=== PATIENT | female | born 1950 | race Caucasian/White ===

== ENCOUNTER → 2020-03-17 09:29 | Outpatient (CLI) | payer MEDICARE, OTHER, SELFPAY | PROVIDERS: PCP Internal Medicine; Referring Provider Internal Medicine; Visit Provider Internal Medicine | DX: M85.852 Other specified disorders of bone density and structure, left thigh (principal); Z78.0 Asymptomatic menopausal state; Z85.3 Personal history of malignant neoplasm of breast; Z82.62 Family history of osteoporosis | CPT/HCPCS: 77080 ==

== ENCOUNTER → 2020-07-13 10:13 | Outpatient (CLI) | payer MEDICARE, OTHER, SELFPAY ==
[2020-07-13] MEDS: COVID-19 VACC #1, MRNA(MOD) 100 MCG/0.5 ML VIAL IM (10:25)
== END ==
PROVIDERS: PCP Internal Medicine; Visit Provider Internal Medicine
DX: Z23 Encounter for immunization (principal)
CPT/HCPCS: 0011A; 91301

== ENCOUNTER → 2020-08-10 10:16 | Outpatient (CLI) | payer MEDICARE, OTHER, SELFPAY ==
[2020-08-10] MEDS: COVID-19 VACC #2, MRNA(MOD) 100 MCG/0.5 ML VIAL IM (10:29)
== END ==
PROVIDERS: PCP Internal Medicine; Visit Provider Internal Medicine
DX: Z23 Encounter for immunization (principal)
CPT/HCPCS: 0012A; 91301

== ENCOUNTER → 2020-08-31 11:07 | Outpatient (CLI) | payer MEDICARE, OTHER, SELFPAY ==
--- NOTE | 2020-08-31 | DI.MRI.S_ITS ---
PROCEDURE: MR ANGIO HEAD WO CON INDICATIONS: Family history of stroke TECHNIQUE: Noncontrast axial 3-D [id number] MR angiogram, with 3-dimensional maximum intensity projection (MIP) reformats of the internal carotid arteries and posterior circulation then performed. COMPARISON: None. FINDINGS: Image quality: Excellent. Anterior circulation: Intracranial internal carotid arteries demonstrate normal size and intraluminal flow signal. The flow within the paired anterior cerebral arteries is normal and symmetric. The flow within the middle cerebral arteries is normal and symmetric. The anterior communicating artery is seen. No stenoses, occlusions, or aneurysms. Posterior circulation: Visualized portions of the vertebral arteries demonstrate normal caliber, and join to form a normal appearing basilar artery. The flow within the posterior cerebral arteries is normal and symmetric. No stenoses, occlusions, or aneurysms. IMPRESSION: 1. Normal MR angiogram of the head. 2. No large vessel occlusion, vascular stenosis, vascular dissection or aneurysm. Dictated by: Sofia Edward MD, PhD on 08/31/2020 at 16:28 Approved by: Sofia Edward MD, PhD on 08/31/2020 at 16:31
== END ==
PROVIDERS: PCP Internal Medicine; Referring Provider Internal Medicine; Visit Provider Internal Medicine
DX: Z13.6 Encounter for screening for cardiovascular disorders (principal); Z82.3 Family history of stroke
CPT/HCPCS: 70544

== ENCOUNTER → 2022-04-06 10:16 | Outpatient (CLI) | payer MEDICARE, OTHER, SELFPAY | PROVIDERS: PCP Internal Medicine; Referring Provider Internal Medicine; Visit Provider Internal Medicine | DX: M85.852 Other specified disorders of bone density and structure, left thigh (principal); Z79.890 Hormone replacement therapy; Z79.83 Long term (current) use of bisphosphonates | CPT/HCPCS: 77080 ==

== ENCOUNTER → 2022-06-21 10:06 | Outpatient (CLI) | payer MEDICARE, OTHER, SELFPAY ==
--- NOTE | 2022-06-21 | DI.RAD.S_ITS ---
PROCEDURE: XR CHEST 2V INDICATIONS: Acute bronchospasm TECHNIQUE: 2 views of the chest were acquired. COMPARISON: None. FINDINGS: Surgical changes and devices: None. Lungs and pleura: Lungs are clear. No pleural effusions or pneumothorax. Mediastinum: Mediastinal contours are normal. Heart size is normal. Bones and chest wall: No suspicious bony abnormalities. Soft tissues appear unremarkable. Surgical clips in the left breast noted IMPRESSION: No acute cardiopulmonary findings Approved by: Steven Dias M.D. on 06/21/2022 at 10:20
== END ==
PROVIDERS: PCP Internal Medicine; Referring Provider Internal Medicine; Visit Provider Physician Assistant
DX: J98.01 Acute bronchospasm (principal)
CPT/HCPCS: 71046

== ENCOUNTER → 2023-07-24 13:44 | Outpatient (CLI) | payer MEDICARE, OTHER, SELFPAY ==
--- NOTE | 2023-07-24 13:46 | DI.ECHO.S_ITS ---
[facility] +---------+ : : [address] : : : : [id number] : : : : Phone: [phone] Echocardiogram Report + + :Name: HANK YOUNG Study Date: 07/24/2023 Height: 66 in : :[facility] ReadingLocation: Weight: 155 lb : : Gender: Female BSA: 1.8 m2 : :: 1950 Age: 72 yrs BP: 146/82 mmHg: :Reason For Study: HYPERTENSION : :Ordering Physician: BILL, : :PILY Performed By: Shamika Castaneda : :Referring: CORY SANCHEZ : + + Interpretation Summary 1) Normal left ventricular thickness, size, wall motion, and systolic function (EF 60-65%). 2) Normal right ventricular size and function. 3) No significant valvular abnormalities. 4) No prior Echo available for comparison. Procedure: A two-dimensional transthoracic echocardiogram with color flow and Doppler was performed. The study quality was technically adequate. There is no prior echocardiogram noted for this patient. The patient was in sinus rhythm with heart rates between 54-63 bpm during the exam. Left Ventricle: The left ventricle is normal in size and wall thickness. The ejection fraction is estimated to be 60-65%. Left ventricular systolic function appears normal without focal wall motion abnormalities. Right Ventricle: The right ventricle is normal in size and function. Atria: The left atrial size is normal. Right atrial size is normal. There is no Doppler evidence for an interatrial shunt. Mitral Valve: The mitral valve is normal in structure and function. There is trace mitral regurgitation. Aortic Valve: The aortic valve is trileaflet. The aortic valve opens well. There is no aortic valve stenosis. No aortic regurgitation is present. Tricuspid Valve: The tricuspid valve is normal in structure and function. There is trace tricuspid regurgitation. Pulmonary artery pressures cannot be estimated because of the lack of a measurable TR jet velocity. Pulmonic Valve: The pulmonic valve leaflets are thin and pliable; valve motion is normal. There is mild pulmonic regurgitation. Great Vessels: The aortic root is normal size. The dimensions of the ascending aorta are normal. The IVC is of normal diameter and collapses greater than 50% with a sniff. This suggests a low right atrial pressure of 3 mm Hg. Pericardium/ Pleura There is no pericardial effusion. There is no pleural effusion. MMode/2D Measurements & Calculations LVIDd: 4.6 cm LVOT diam: 2.0 cm LVIDs: 2.8 cm Ao root diam: 3.0 cm FS: 38.9 % asc Aorta Diam: 3.5 cm EPSS: 0.64 cm Ao Arch Diam (Prox Trans): 3.2 cm IVSd: 0.96 cm LVPWd: 0.78 cm LV still. diameter/BSA (cm/m^2): 2.6 LV sys. diameter/BSA (cm/m^2): 1.6 LA A2 area: 16.5 cm2 RA long axis: 4.1 cm LA A4 area: 15.0 cm2 RA area: 12.5 cm2 LA length (vol): 4.6 cm RA vol: 32.3 ml LA vol: 45.6 ml RA : 18.0 ml/m2 LA vol index: 25.4 ml/m2 IVC diam: 1.3 cm RVD1 (basal): 3.2 cm RVD2 (mid): 2.8 cm TAPSE: 1.8 cm Doppler Measurements & Calculations Ao V2 max: 107.9 cm/sec LVOT Max Cuco: 101.7 cm/sec Ao V2 mean: 74.5 cm/sec LV V1 max P.1 mmHg Ao max P.7 mmHg LV V1 VTI: 24.5 cm Ao mean P.5 mmHg ANNAMARIE(I,D): 3.0 cm2 Ao V2 VTI: 24.7 cm ANNAMARIE(V,D): 2.9 cm2 sev ratio: 0.99 ANNAMARIE indexed to BSA (cm^2/m^2): 1.7 MV E max cuco: 52.5 cm/sec PA V2 max: 78.2 cm/sec MV A max cuco: 66.9 cm/sec PA V2 mean: 57.6 cm/sec MV E/A: 0.78 PA mean P.4 mmHg Med Peak E' Cuco: 6.5 cm/sec PA pr(Accel): 3.6 mmHg E/E' med: 8.1 Lat Peak E' Cuco: 8.9 cm/sec E/E' lat: 5.9 E/e' average: 7.0 MV dec time: 0.19 sec SV(LVOT): 74.9 ml Reading Physician:03:37 PM
== END ==
LOC: ECHO 13:45
PROVIDERS: PCP Internal Medicine; Referring Provider Internal Medicine Cardiovascular Disease; Visit Provider Internal Medicine Cardiovascular Disease
DX: I37.1 Nonrheumatic pulmonary valve insufficiency (principal); I10 Essential (primary) hypertension
CPT/HCPCS: 93306

== ENCOUNTER 2023-11-19 08:31 | Observation (INO) | payer MEDICARE, OTHER, SELFPAY ==
[2023-11-19] VITALS (7 sets, daily range): BP systolic 113–192; BP diastolic 73–92; PULSE 61–70; RESP 14–20; TEMP 36.3–36.9; O2SAT 96–98; BMI 25.7
--- NOTE | 2023-11-19 08:44 | DI.RAD.S_ITS ---
PROCEDURE: XR CHEST 1V INDICATIONS: FB sensation throat, eval for mediastinal air/FB TECHNIQUE: One view of the chest was acquired. COMPARISON: [facility], CR, XR CHEST 2V, 06/21/2022, 10:09. FINDINGS: Surgical changes and devices: Left lumpectomy clips Lungs and pleura: Lungs are clear. No pleural effusions or pneumothorax. Mediastinum: Mediastinal contours appear normal. Heart size is normal. Bones and chest wall: No suspicious bony lesions. Overlying soft tissues appear unremarkable. IMPRESSION: No acute cardiopulmonary abnormality is seen. Dictated by: Jun Fuller M.D. on 11/19/2023 at 9:23 Approved by: Jun Fuller M.D. on 11/19/2023 at 9:28
--- NOTE | 2023-11-19 08:48 | ED_ITS ---
HPI - Abdominal Pain General Chief Complaint: Skin/Abscess/Foreign Body Stated Complaint: piece of food stuck on throat Time Seen by Provider: 11/19/23 08:44 Source: patient Mode of arrival: Ambulatory History of Present Illness HPI narrative: 73-year-old female complains of foreign body sensation esophagus 6:00 p.m. last night after eating pork ribs and tater tots, unable to handle her secretions, did try to drink, slept overnight, no soaking of pillow/drool, this morning tried sips of water, unable to keep any water down, nonbloody secretions, prefers to spit in a bag. 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 She has had foreign body sensations before but she is usually able to drink small amounts of fluid in pass them. She denies use of blood thinner medications except for baby aspirin, did not take baby aspirin this morning. Related Data Home Medications Medication Instructions Recorded Confirmed anastrozole 1 mg tablet 1 mg PO DAILY 11/19/23 11/19/23 aspirin 81 mg tablet,delayed 81 mg PO DAILY 11/19/23 11/19/23 release atorvastatin 40 mg tablet 40 mg PO DAILY 11/19/23 11/19/23 losartan 50 mg tablet 50 mg PO DAILY 11/19/23 11/19/23 metoprolol succinate 50 mg 75 mg PO DAILY 11/19/23 11/19/23 tablet,extended release 24 hr oxuyrzgk-[id number]-[id number] 8 mg-folic 400 1 tab PO DAILY 11/19/23 11/19/23 mcg-K 50 mcg-lutein 300 mcg tablet (Multivitamin Women 50 Plus) Allergies Allergy/AdvReac Type Severity Reaction Status Date / Time No Known Drug Allergies Allergy Verified 11/19/23 08:42 Review of Systems Review of Systems Narrative: as per HPI Patient History Medical History High cholesterol Hypertension Breast cancer Surgical History S/P breast lumpectomy Social History Smoking Status: Never smoker alcohol intake: current Smoking Status: Never smoker alcohol intake frequency: other Substance Use Type: does not use Exam Narrative Exam Narrative: GENERAL: Well-developed patient, in mild distress. Holds emesis bag for spitting her secretions HEAD: Atraumatic. Normocephalic. EYES: Pupils equal round and reactive. Extraocular motions intact. No scleral icterus. No injection or drainage. ENT: Nose without bleeding, purulent drainage. Throat without erythema, tonsillar hypertrophy or exudate. Airway patent. NECK: Trachea midline. Non tender CARDIOVASCULAR: Regular rate and rhythm without murmurs, gallops, or rubs. RESPIRATORY: Clear to auscultation. Breath sounds equal bilaterally. No wheezes, rales, or rhonchi. GASTROINTESTINAL: Abdomen soft, non-tender, nondistended. EXTREMITIES: No edema or joint tenderness. BACK: Nontender without deformity or crepitance. No flank tenderness. NEURO: AOx3. SKIN: No rash or erythema of visible areas Initial Vital Signs Initial Vital Signs: Vital Signs Temperature 98.4 F 11/19/23 08:42 Pulse Rate 68 11/19/23 08:42 Respiratory Rate 18 11/19/23 08:42 Blood Pressure 184/86 H 11/19/23 08:42 Pulse Oximetry 96 11/19/23 08:42 Oxygen Delivery Method Room Air 11/19/23 08:42 Course Orders Ordered: Discontinued Medications Diazepam (Diazepam 10 Mg/2 Ml Syringe) 2 mg IV NOW ONE Stop: 11/19/23 09:26 Last Admin: 11/19/23 10:00 Dose: 2 mg Documented By: MPO Hydromorphone HCl (Hydromorphone 1 Mg Inj) 0 mg IV Q5MIN PRN PRN Reason: Pain, Mild (1-3) Lactated Ringer's (Lactated Ringers) 1,000 mls @ 42 mls/hr IV CONT YVONNE Last Infusion: 11/19/23 16:02 Dose: Infused Documented By: Admin: 11/19/23 10:01 Dose: 42 mls/hr Documented By: MPO Meperidine HCl (Meperidine 50 Mg/Ml Inj) 12.5 mg IV PACUNOW PRN PRN Reason: Mild pain or shivering Metoclopramide HCl (Metoclopramide 10 Mg/2 Ml Inj) 10 mg IV NOW PRN PRN Reason: Nausea And Vomiting Ondansetron HCl (Ondansetron 4 Mg/2 Ml Inj) 4 mg IV NOW PRN PRN Reason: Nausea And Vomiting Last Admin: 11/19/23 12:44 Dose: 4 mg Documented By: TIEN Oxycodone HCl (Oxycodone Ir 5 Mg Tablet) 5 mg PO PACUNOW PRN PRN Reason: Mild or moderate pain Vital Signs Vital signs: Vital Signs - 8 hr 11/19/23 08:42 11/19/23 09:46 Temperature 98.4 F Pulse Rate 68 68 Respiratory Rate 18 Blood Pressure 184/86 H 192/92 H Pulse Oximetry 96 Oxygen Delivery Method Room Air MDM - Abdominal Pain Imaging Data Chest x-ray: Radiologist's Impression: [address] [address] XRay Report Signed Patient: Elba Jerome MR#: [id number] : 1950 Acct:[id number] Age/Sex: 73 / F Date of Service: 11/19/23 Loc: ED Accession Number: [id number] Procedure: XR chest 1V Ordering Provider: Ryland Paiz MD PROCEDURE: XR CHEST 1V INDICATIONS: FB sensation throat, eval for mediastinal air/FB TECHNIQUE: One view of the chest was acquired. COMPARISON: [facility], , XR CHEST 2V, 06/21/2022, 10:09. FINDINGS: Surgical changes and devices: Left lumpectomy clips Lungs and pleura: Lungs are clear. No pleural effusions or pneumothorax. Mediastinum: Mediastinal contours appear normal. Heart size is normal. Bones and chest wall: No suspicious bony lesions. Overlying soft tissues appear unremarkable. IMPRESSION: No acute cardiopulmonary abnormality is seen. Dictated by: Jun Fuller M.D. on 11/19/2023 at 9:23 Approved by: Jun Fuller M.D. on 11/19/2023 at 9:28 [facility] Narrative Medical decision making narrative: 73-year-old female with history of mid upper esophageal dysplasia status post remote ablation therapy, most recent EGD apparently was normal March 2022, now with foreign body esophageal sensations since eating pork rib and tater tots 6:00 p.m. last night, unable to handle secretions this morning. Abdomen benign. Screening chest x-ray without obvious mediastinal air or foreign body. We will contact surgery Case discussed with surgery Dr. Sellers, other EGDs ahead of her this morning scheduled, holding ED, likely to OR for EGD proximally 1-1:30 p.m. She suggested possible IV Valium as a muscle relaxant while awaiting the procedure. Keep NPO. Discharge Plan Departure Patient Disposition: Admitted to Surgery Clinical Impression: Esophagus, foreign body Admit Date/Time: 11/19/23 09:58 Admit Provider: Adry Sellers
--- NOTE | 2023-11-19 09:17 | PC.NURSE ---
Pt came to ED today because she has had something stuck in her throat since yesterday. Pt has hx of esophageal surgery and states that there is some narrowing after surgery. Denies pain. Denies difficulty breathing or sob. Able to manage secretions. A&Ox4.
[2023-11-19] MEDS: diazePAM 10 MG/2 ML SYRINGE 2 MG IV (10:00)
[2023-11-19] MEDS: LACTATED RINGERS 1,000 ML 42 ML IV (10:01)
[2023-11-19] MEDS: ONDANSETRON 4 MG/2 ML INJ IV (12:44)
--- NOTE | 2023-11-19 12:47 | PM.HP.1 ---
History of Present Illness History of Present Illness Date Patient Seen: 11/19/23 Time Patient Seen: 12:47 Chief complaint: piece of food stuck on throat Narrative: Piece of pork vs large pill stuck since 6pm last night. Can't handle secretions. 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 This is first time something got stuck. Last EGD was last year. [facility] Medical History High cholesterol Hypertension Breast cancer Surgical History S/P breast lumpectomy Social History Smoking Status: Never smoker alcohol intake: current Meds Home Medications and Allergies Home Medications Medication Instructions Recorded Confirmed Type anastrozole 1 mg tablet 1 mg PO DAILY 11/19/23 11/19/23 History aspirin 81 mg tablet,delayed 81 mg PO DAILY 11/19/23 11/19/23 History release atorvastatin 40 mg tablet 40 mg PO DAILY 11/19/23 11/19/23 History losartan 50 mg tablet 50 mg PO DAILY 11/19/23 11/19/23 History metoprolol succinate 50 mg 75 mg PO DAILY 11/19/23 11/19/23 History tablet,extended release 24 hr merkznka-tjxs-jmmf 8 mg-folic 400 1 tab PO DAILY 11/19/23 11/19/23 History mcg-K 50 mcg-lutein 300 mcg tablet (Multivitamin Women 50 Plus) Allergies Allergy/AdvReac Type Severity Reaction Status Date / Time No Known Drug Allergies Allergy Verified 11/19/23 08:42 Review of Systems Review of Systems ROS: Yes All systems reviewed with the patient and are negative except as otherwise documented Exam Vital Signs (past 8 hours): - 11/19/23 08:42 11/19/23 09:46 11/19/23 10:43 Temperature 98.4 F Pulse Rate 68 68 70 Respiratory Rate 18 Blood Pressure 184/86 H 192/92 H 164/75 H Pulse Oximetry 96 Oxygen Delivery Method Room Air 11/19/23 12:18 Temperature 98.0 F Pulse Rate 65 Respiratory Rate 18 Blood Pressure 150/75 H Pulse Oximetry 97 Oxygen Delivery Method Room Air Oxygen Delivery Method Room Air Const General: cooperative, healthy appearing and comfortable HENRI Head: normocephalic and atraumatic Ears: hearing grossly normal bilaterally Eyes General: appearance normal, both eyes and all related structures Sclera: sclerae normal Neck Neck: trachea midline Resp Effort & Inspection: normal respiratory effort and able to speak in complete sentences Cardio Rate: regular rate Rhythm: regular rhythm GI Palpation: soft and No tender Skin General: atrophy and dry skin Neuro General: patient alert, patient awake and patient oriented x3 Cognition: normal cognition Psych Appearance: grossly normal Mental Status: mental status grossly normal Judgment: judgment good Assessment & Plan Assessment & Plan narrative: foreign body in esophagus, h/o esophageal ablation for high grade dysplasia 10 yrs ago. Plan: EGD with anesthesia Time Spent With Patient Time with patient: less than 30 minutes
--- NOTE | 2023-11-19 13:42 | P.OP.EGD_ITS ---
Operative Date/Time/Diagnoses Date of procedure: 11/19/23 Time of procedure: 13:43 Pre-op diagnosis: Esophageal foreign body Post-op diagnosis: same Procedure & Clinicians Study performed: EGD with removal of foreign body using the anesthetic Same procedure as scheduled: Yes Indications: Esophageal foreign body Surgeon: Adry Sellers Procedure Notes Procedure in detail: Preop diagnosis: Esophageal foreign body Postop diagnosis: Same Operative procedure: EGD with removal of foreign body Surgeon: Sheryl Sellers MD Anesthetic: General with ET tube intubation Findings: Particles of port still within the esophagus. No significant stricture however there is lack of motility and scarring in the mid section of the esophagus, no masses identified. Procedure: Patient placed in a supine position. She was intubated for the pro cedure. I then placed the scope into the esophagus advanced to the midportion where a segment of scarring could be appreciated. No significant stricturing or obstruction. There is a lack of motility in this patch of esophagus as well. No distal compromise of the GE junction. I was able to pass the meet through into the stomach with ease. Remainder of the stomach duodenal were not investigated. Impression: Esophageal foreign body Plan: Discharge to home with recommendations of no eating of stringy meet to include beef, pork, chicken. Findings: other findings (Esophageal scarring presumed from previous ablation 10 years ago. No stricture) Specimen(s): none sent Complications: none Post-procedure Follow up: as needed Disposition: PACU
== END 2023-11-19 14:32 | disposition home or self-care (01) ==
LOC: ED 09:55 → AC 09:58
PROVIDERS: Admitting Provider Surgery; Emergency Provider Emergency Medicine; PCP Internal Medicine; Visit Provider Surgery
PROC: 0DJ08ZZ Inspection of Upper Intestinal Tract, Via Natural or Artificial Opening Endoscopic (ICD-10-PCS; CPT 43235; principal; 2023-11-19 13:30)
DX: T18.128A Food in esophagus causing other injury, initial encounter (principal)
CPT/HCPCS: 43247; 71045; 96374; 96375; 99283; 99284; G0378; J1100; J2405; J2704; J3010; J3360

== ENCOUNTER → 2024-03-31 16:11 | Outpatient (CLI) | payer MEDICARE, OTHER, SELFPAY ==
--- NOTE | 2024-03-31 16:15 | DI.RAD.S_ITS ---
PROCEDURE: XR HIP W PEL IF DONE RT 2V INDICATIONS: NECK/HIP PX TECHNIQUE: AP pelvis with lateral view(s) of the right hip COMPARISON: None. FINDINGS: Bones: There are no osseous abnormalities. SI and hip joints: Normal in width and alignment without arthritic change Soft tissues: No soft tissue swelling, calcification or mass. IMPRESSION: Normal pelvis Dictated by: Rasheed Gamino M.D. on 04/01/2024 at 10:36 Approved by: Rasheed Gamino M.D. on 04/01/2024 at 10:39
--- NOTE | 2024-03-31 16:15 | DI.RAD.S_ITS ---
PROCEDURE: XR CERVICAL SPINE 2V OR 3V INDICATIONS: NECK/HIP PX TECHNIQUE: Three views (s) of the cervical spine were acquired. COMPARISON: None. FINDINGS: Cervical spine curvature and alignment: Normal. Bones: There are no osseous abnormalities. Disc spaces: Mild C4-5, moderate C5-6 and C6-7 degenerative disc disease noted. There is mild C3-4 through C7-T1 degenerative facet disease. Delete Soft tissues: No soft tissue swelling, calcification or mass. IMPRESSION: Degeneration Dictated by: Rasheed Gamino M.D. on 04/01/2024 at 10:48 Approved by: Rasheed Gamino M.D. on 04/01/2024 at 10:49
== END ==
PROVIDERS: PCP Internal Medicine; Referring Provider Internal Medicine; Visit Provider Internal Medicine
DX: M50.321 Other cervical disc degeneration at C4-C5 level (principal); M47.812 Spondylosis without myelopathy or radiculopathy, cervical region; M25.551 Pain in right hip
CPT/HCPCS: 72040; 73502

== ENCOUNTER → 2024-04-09 12:42 | Outpatient (CLI) | payer MEDICARE, OTHER, SELFPAY ==
--- NOTE | 2024-04-09 12:43 | DI.RAD.S_ITS ---
PROCEDURE: XR DEXA AXIAL SKELETON INDICATIONS: Asymptomatic menopausal state COMPARISON: [facility], CR, XR DEXA AXIAL SKELETON, 04/06/2022, 10:34. [facility], CR, XR DEXA AXIAL SKELETON, 03/17/2020, 10:02. FINDINGS: Lumbar Spine: Bone mineral density 0.872 g/cm2, T score -1.6, previously -1.7, overall a 1.3 percent increase in bone mineral density. Left Hip: Bone mineral density 0.787 g/cm2, T score -1.3, previously-1.4, overall a 2 percent increase in bone mineral density. Left Femoral Neck: Bone mineral density 0.618 g/cm2, T score -2.1, previously-1.8, overall a 4.1 percent decrease in bone mineral density. Right Hip: Bone mineral density 0.823 g/cm2, T score -1.0, previously -1.0. Right Femoral Neck: Bone mineral density 0.612 g/cm2, T score -2.1, previously-1.6, overall an 8.6 percent decrease in bone mineral density. Fracture Risk Calculation (when applicable): 10-year fracture risk of a major osteoporotic fracture 21 percent and of a hip fracture 4.7 percent. (T score greater or equal to -1.0 to: NORMAL) (T score from -1.1 to -2.4: OSTEOPENIA) (T score less than or equal to -2.5: OSTEOPOROSIS) IMPRESSION: 1. Osteopenia of the lumbar spine. 2. Osteopenia of the left hip and left femoral neck. 3. Normal bone density of the right hip, although approaching osteopenia. 4. Osteopenia of the right femoral neck. Follow-up guidelines as follows: Osteoporosis: Consider a repeat DEXA and Vertebral Fracture Assessment (VFA) exam in 2 years or sooner if medically necessary, to reassess this patient's status. Osteopenia: Consider a repeat DEXA in 2-3 years to reassess this patient's status, or if there is a new clinical indication. Normal: Consider a repeat DEXA in 5 years or sooner, or if there is a new clinical indication. All treatment decisions require clinical judgment and consideration of individual patient factors, including patient preferences, comorbidities, previous drug use, risk factors not captured in the FRAX model (e.g., frailty, falls, vitamin D deficiency, increased bone turnover, interval significant decline in bone density ) and possible under- or over-estimation of fracture risk by FRAX. In addition, the NOF Guide recommends that FDA-approved medical therapies be considered in postmenopausal women and men age >= 50 years with a: * Hip or vertebral (clinical or morphometric) fracture * T-score of <=-2.5 at the spine or hip * Ten-year fracture probability by FRAX of >= 3% for hip fracture or >=20% for major osteoporotic fracture. People with diagnosed cases of osteoporosis or at high risk for fracture should have regular bone mineral density tests. For patients eligible for Medicare, routine testing is allowed once every 2 years. The testing frequency can be increased to one year for patients who have rapidly progressing disease, those who are receiving or discontinuing medical therapy to restore bone mass, or have additional risk factors. Dictated by: Venkat Borges M.D. on 04/10/2024 at 8:14 Approved by: Venkat Borges M.D. on 04/10/2024 at 8:19
== END ==
LOC: RAD 12:43
PROVIDERS: PCP Internal Medicine; Referring Provider Internal Medicine; Visit Provider Internal Medicine
DX: M85.89 Other specified disorders of bone density and structure, multiple sites (principal); Z78.0 Asymptomatic menopausal state
CPT/HCPCS: 77080

== ENCOUNTER → 2025-05-05 10:45 | Outpatient (CLI) | payer MEDICARE, OTHER, SELFPAY ==
--- NOTE | 2025-05-05 10:47 | DI.RAD.S_ITS ---
PROCEDURE: XR CHEST 2V INDICATIONS: 2m cough r/o pneumonia TECHNIQUE: 2 views of the chest were acquired. COMPARISON: [facility], CR, XR CHEST 1V, 11/19/2023, 9:01. FINDINGS: Surgical changes and devices: None. Lungs and pleura: Lungs are clear. No pleural effusions or pneumothorax. Mediastinum: Mediastinal contours are normal. Heart size is normal. Bones and chest wall: No suspicious bony abnormalities. Soft tissues appear unremarkable. IMPRESSION: No acute cardiopulmonary abnormality is seen. Dictated by: Kenney Beckford M.D. on 05/05/2025 at 11:33 Approved by: Kenney Beckford M.D. on 05/05/2025 at 11:35
== END ==
PROVIDERS: PCP Internal Medicine; Referring Provider Internal Medicine; Visit Provider Chiropractor
DX: R05.2 Subacute cough (principal)
CPT/HCPCS: 71046